=== PATIENT | female | born 1970 | race Two or more races ===

== ENCOUNTER 2019-03-02 13:53 | Emergency (ER) | payer MEDICAID, OTHER ==
[~2019-03-02] VITALS: Ht 154.9 cm; Wt 90.7 kg
[2019-03-02 14:07] VITALS: BP 158/92
== END 2019-03-02 16:35 | disposition home or self-care (01) ==
LOC: ER 14:00 → OR 1 14:24 → ER 16:16
DX: M77.52 Other enthesopathy of left foot and ankle (principal); E78.5 Hyperlipidemia, unspecified; I10 Essential (primary) hypertension; X58.XXXA Exposure to other specified factors, initial encounter; Y93.01 Activity, walking, marching and hiking; Y92.89 Other specified places as the place of occurrence of the external cause; Y99.8 Other external cause status
CPT/HCPCS: 73630

== ENCOUNTER 2019-04-11 03:52 | Emergency (ER) | payer MEDICAID ==
[~2019-04-11] VITALS: Ht 154.9 cm; Wt 90.7 kg
[~2019-04-11 03:52] MED LIST: ACET-1156 PO; ACET30TA15 PO; AMLO5TAB13 PO; APIX5TAB OR; ATO40T PO; CHOL20007 PO; CYCL0.05 EACHEYE; CYCL1TAB18 PO; DICL1GEL26 TD; ESCI10TA PO; FEXO-38 PO; HYDR1TAB97 PO; IBUP800T24 PO; LEVO112T4 PO; PANT40T PO; PREG75CA PO; PROP60CA34 PO; TRIA0.1P11 TOP
[2019-04-11 07:45] LABS: Basophils # (auto) 0.1 uL; Basophils % (auto) 0.9 % (0.0-2.0); Eosinophils # (auto) 0.2 uL; Eosinophils % (auto) 2.1 % (0.0-7.0); Hematocrit 39.6 % (36.0-46.0); Hemoglobin 13.1 g/dL (12.2-16.2); Lymphocytes % (auto) 27.8 % (10.0-50.0); Mean Corpuscular Hemoglobin 29.6 pg (28.0-32.0); Mean Corpuscular Volume 89.6 fL (80.0-100.0); Monocytes # (auto) 0.5 uL; Monocytes % (auto) 6.8 % (0.0-12.0); Neutrophils # (auto) 4.5 uL; Neutrophils % (auto) 62.4 % (37.0-80.0); Platelet Count (auto) 402 10^3/uL (140-450); Red Blood Cells 4.42 10^6/uL (4.0-5.20); Red Cell Distribution Width 13.9 % (11.8-14.3); White Blood Cell 7.2 10^3/uL (4.4-10.8)
[2019-04-11 08:02] LABS: Alanine Aminotransferase 22 U/L (13-56); Albumin 3.4 g/dL (3.4-5.0); Anion Gap 11 (5-15); Aspartate Aminotransferase 12 U/L (15-37); BUN/Creatinine Ratio 15.5; Blood Urea Nitrogen 13 mg/dL (7-18); Calcium 8.9 mg/dL (8.5-10.1); Carbon Dioxide 19 mmol/L (21-32); Chloride 106 mmol/L (98-107); GFR African American 93 mL/min; GFR Non-African American 77 mL/min; Glucose 110 mg/dL (74-106); Magnesium 2.6 mg/dL (1.6-2.6); Potassium 4.1 mmol/L (3.5-5.1); Sodium 136 mmol/L (136-145)
[2019-04-11 08:07] LABS: Alkaline Phosphatase 98 U/L (45-117); Bilirubin, Total 0.3 mg/dL (0.2-1.0); Total Protein 8.6 g/dL (6.4-8.2)
[2019-04-11 08:24] LABS: INR < 0.93 (0.9-1.15); Partial Thromboplastin Time 28.5 sec (23.64-32.05)
[2019-04-11] MEDS ORDERED: METOCLOPRAMIDE HCL 5MG/ml INJ 2ml VIAL IV ONE (08:30)
[2019-04-11] MEDS ORDERED: MORPHINE SULFATE 4 MG/ML SYR/VIAL IV ONE (08:30)
[2019-04-11 10:30] VITALS: BP 125/68
== END 2019-04-11 16:38 | disposition home or self-care (01) ==
LOC: ER 03:55
DX: R07.89 Other chest pain (principal); N39.0 Urinary tract infection, site not specified; M75.32 Calcific tendinitis of left shoulder; E78.5 Hyperlipidemia, unspecified; I10 Essential (primary) hypertension; Z86.718 Personal history of other venous thrombosis and embolism; Z86.711 Personal history of pulmonary embolism; Z86.39 Personal history of other endocrine, nutritional and metabolic disease; Z88.0 Allergy status to penicillin; Z79.899 Other long term (current) drug therapy
CPT/HCPCS: 36415; 71045; 73030; 80053; 83735; 84443; 84484; 85025; 85379; 85610; 85730; 93005; 94761; 96374; 96375; 99284; J2270; J2765

== ENCOUNTER 2020-03-25 13:35 | Emergency (ER) | payer MEDICAID ==
[~2020-03-25] VITALS: Ht 154.9 cm; Wt 86.2 kg
[~2020-03-25 13:35] MED LIST changes: -AMLO5TAB13 PO; +AMLO5TAB15 PO; +CYCL10TA6 PO; -CYCL1TAB18 PO
[2020-03-25 17:07] LABS: Urine Bacteria MOD /hpf (None Seen); Urine Blood 1+ /uL (Negative); Urine Mucus FEW (None Seen); Urine Specific Gravity 1.021 (1.001-1.035); Urine WBC 754 /hpf (0 - 5)
[2020-03-25 17:30] VITALS: BP 145/82
== END 2020-03-25 17:33 | disposition home or self-care (01) ==
LOC: ER 13:35
DX: K80.20 Calculus of gallbladder without cholecystitis without obstruction (principal); N39.0 Urinary tract infection, site not specified; E78.5 Hyperlipidemia, unspecified; I10 Essential (primary) hypertension; Z88.0 Allergy status to penicillin
CPT/HCPCS: 74176; 81001

== ENCOUNTER 2020-11-11 14:19 | Emergency (ER) | payer MEDICAID ==
[~2020-11-11] VITALS: Ht 157.5 cm; Wt 81.6 kg
[~2020-11-11 14:19] MED LIST changes: +AMLO-489 PO; -AMLO5TAB15 PO; -IBUP800T24 PO; +IBUP800T27 PO
[2020-11-11 16:06] VITALS: BP 191/107
== END 2020-11-11 19:52 | disposition home or self-care (01) ==
LOC: ER 14:19
DX: M25.512 Pain in left shoulder (principal); I10 Essential (primary) hypertension; E78.5 Hyperlipidemia, unspecified; Z79.899 Other long term (current) drug therapy; Z88.0 Allergy status to penicillin
CPT/HCPCS: 73030; 93971

== ENCOUNTER 2022-01-14 10:32 | Emergency (ER) | payer MEDICAID ==
[~2022-01-14] VITALS: Ht 157.5 cm; Wt 90.7 kg
[~2022-01-14 10:32] MED LIST changes: +CYCL-839 PO; -CYCL10TA6 PO; -FEXO-38 PO; +FEXO-90 PO; -TRIA0.1P11 TOP; +TRIA0.1P17 TOP
[2022-01-14 11:05] LABS: Basophils # (auto) 0 10 ^3/uL (0-0.2); Basophils % (auto) 0.3 % (0.0-2.0); Eosinophils # (auto) 0.1 10 ^3/uL (0-0.8); Eosinophils % (auto) 2.4 % (0.0-7.0); Hematocrit 41.7 % (36.0-46.0); Hemoglobin 14.4 g/dL (12.2-16.2); Lymphocytes # (auto) 2.3 10 ^3/uL (0.4-5.4); Lymphocytes % (auto) 41.6 % (10.0-50.0); Mean Corpuscular Hemoglobin 31.4 pg (28.0-32.0); Mean Corpuscular Hgb Conc. 34.6 g/dL (32.0-36.0); Mean Corpuscular Volume 90.7 fL (80.0-100.0); Monocytes # (auto) 0.6 10 ^3/uL (0-1.3); Monocytes % (auto) 10.9 % (0.0-12.0); Neutrophils # (auto) 2.5 10 ^3/uL (1.6-8.6); Neutrophils % (auto) 44.8 % (37.0-80.0); Nucleated Red Blood Cells % 0.1 %; Red Cell Distribution Width 13.4 % (11.8-14.3); White Blood Cell 5.6 10^3/uL (4.4-10.8)
[2022-01-14 11:18] LABS: Albumin 3.5 g/dL (3.4-5.0); Calcium 9.1 mg/dL (8.5-10.1); Potassium 3.8 mmol/L (3.5-5.1)
[2022-01-14 11:21] LABS: BUN/Creatinine Ratio 10.3; Bilirubin, Total 0.6 mg/dL (0.2-1.0); Total Protein 8.1 g/dL (6.4-8.2)
[2022-01-14 12:39] LABS: Urine Bacteria FEW /hpf (None Seen); Urine Blood Negative /uL (Negative); Urine Specific Gravity 1.002 (1.001-1.035); Urine WBC 1 /hpf (0 - 5)
[2022-01-14] MEDS ORDERED: diazePAM 5 MG TAB PO ONE (16:15)
[2022-01-14 19:47] VITALS: BP 122/76
[2022-01-15] MEDS ORDERED: PRED20TA2 PO (16:06)
[2022-01-15] MEDS ORDERED: CIP03OS RIGHTEYE (16:06)
[2022-01-15] MEDS ORDERED: AMOX-277 PO (16:06)
== END 2022-01-14 21:40 | disposition left against medical advice (07) ==
LOC: ER 10:32
DX: R42 Dizziness and giddiness (principal); M25.511 Pain in right shoulder; E78.5 Hyperlipidemia, unspecified; I10 Essential (primary) hypertension; Z88.0 Allergy status to penicillin; Z53.21 Procedure and treatment not carried out due to patient leaving prior to being seen by health care provider
CPT/HCPCS: 36415; 70450; 71045; 74176; 80053; 81001; 84484; 85025; 93005

== ENCOUNTER 2022-01-15 14:41 | Emergency (ER) | payer MEDICAID ==
[~2022-01-15] VITALS: Ht 157.5 cm; Wt 90.7 kg
[2022-01-15 14:51] VITALS: BP 126/87
[2022-01-15 15:32] LABS: Basophils # (auto) 0.1 10 ^3/uL (0-0.2); Eosinophils # (auto) 0.2 10 ^3/uL (0-0.8); Eosinophils % (auto) 2.8 % (0.0-7.0); Hematocrit 42.5 % (36.0-46.0); Hemoglobin 14.8 g/dL (12.2-16.2); Lymphocytes # (auto) 2.2 10 ^3/uL (0.4-5.4); Lymphocytes % (auto) 31.5 % (10.0-50.0); Mean Corpuscular Hemoglobin 31.2 pg (28.0-32.0); Mean Corpuscular Hgb Conc. 34.9 g/dL (32.0-36.0); Mean Corpuscular Volume 89.4 fL (80.0-100.0); Monocytes # (auto) 0.4 10 ^3/uL (0-1.3); Monocytes % (auto) 5.9 % (0.0-12.0); Neutrophils % (auto) 57.8 % (37.0-80.0); Nucleated Red Blood Cells % 0.1 %; Red Blood Cells 4.75 10^6/uL (4.0-5.20); Red Cell Distribution Width 12.9 % (11.8-14.3); White Blood Cell 6.9 10^3/uL (4.4-10.8)
[2022-01-15 15:39] LABS: Albumin 3.6 g/dL (3.4-5.0); BUN/Creatinine Ratio 11.5; Calcium 9.5 mg/dL (8.5-10.1); Potassium 3.5 mmol/L (3.5-5.1)
[2022-01-15 15:42] LABS: Bilirubin, Total 0.4 mg/dL (0.2-1.0); Total Protein 8.5 g/dL (6.4-8.2)
[2022-01-15] MEDS ORDERED: CIP03OS RIGHTEYE (16:06)
[2022-01-15] MEDS ORDERED: AMOX-277 PO (16:06)
[2022-01-15] MEDS ORDERED: PRED20TA2 PO (16:06)
== END 2022-01-15 16:14 | disposition home or self-care (01) ==
LOC: ER 14:41
DX: R42 Dizziness and giddiness (principal); H65.03 Acute serous otitis media, bilateral; H10.31 Unspecified acute conjunctivitis, right eye; E78.5 Hyperlipidemia, unspecified; I10 Essential (primary) hypertension; F17.210 Nicotine dependence, cigarettes, uncomplicated
CPT/HCPCS: 36415; 80053; 84484; 85025; 93005

== ENCOUNTER 2022-10-27 14:18 | Emergency (ER) | payer OTHER, MEDICAID ==
[~2022-10-27] VITALS: Ht 154.9 cm; Wt 91.4 kg
[~2022-10-27 14:18] MED LIST changes: +AMOX-277 PO; +CIP03OS RIGHTEYE; +PRED20TA2 PO
[2022-10-27 14:51] LABS: Basophils # (auto) 0.1 10 ^3/uL (0-0.2); Basophils % (auto) 1.7 % (0.0-2.0); Eosinophils # (auto) 0.1 10 ^3/uL (0-0.8); Eosinophils % (auto) 1.8 % (0.0-7.0); Hematocrit 41.3 % (36.0-46.0); Hemoglobin 13.8 g/dL (12.2-16.2); Lymphocytes # (auto) 2.2 10 ^3/uL (0.4-5.4); Mean Corpuscular Hemoglobin 30.5 pg (28.0-32.0); Mean Corpuscular Hgb Conc. 33.4 g/dL (32.0-36.0); Mean Corpuscular Volume 91.3 fL (80.0-100.0); Monocytes # (auto) 0.4 10 ^3/uL (0-1.3); Monocytes % (auto) 9.6 % (0.0-12.0); Neutrophils # (auto) 1.9 10 ^3/uL (1.6-8.6); Neutrophils % (auto) 40.9 % (37.0-80.0); Nucleated Red Blood Cells % 0.1 %; Red Blood Cells 4.52 10^6/uL (4.0-5.20); Red Cell Distribution Width 12.9 % (11.8-14.3); White Blood Cell 4.7 10^3/uL (4.4-10.8)
[2022-10-27 15:41] LABS: Alanine Aminotransferase 39 U/L (13-56); Albumin 3.7 g/dL (3.4-5.0); Alkaline Phosphatase 84 U/L (45-117); Anion Gap 7 (5-15); Aspartate Aminotransferase 36 U/L (15-37); BUN/Creatinine Ratio 11.7; Bilirubin, Total 0.4 mg/dL (0.2-1.0); Blood Urea Nitrogen 9 mg/dL (7-18); Calcium 9.5 mg/dL (8.5-10.1); Carbon Dioxide 27 mmol/L (21-32); Chloride 101 mmol/L (98-107); GFR African American 101 mL/min; GFR Non-African American 84 mL/min; Glucose 104 mg/dL (74-106); Potassium 4.2 mmol/L (3.5-5.1); Sodium 135 mmol/L (136-145); Total Protein 7.5 g/dL (6.4-8.2)
[2022-10-27 15:42] LABS: Lipase 146 U/L (73-393)
[2022-10-27] MEDS ORDERED: metroNIDAZOLE 500MG/100ML 100 ML IV ONE (16:30)
[2022-10-27] MEDS ORDERED: SODIUM CHLORIDE 0.9% 1,000 ML IV ONE (16:30)
[2022-10-27] MEDS ORDERED: VANCOMYCIN 1GM/250ML 250 ML IV ONE (16:30)
[2022-10-27 17:28] LABS: Urine Bacteria FEW /hpf (None Seen); Urine Blood Negative /uL (Negative); Urine Specific Gravity 1.007 (1.001-1.035); Urine WBC 2 /hpf (0 - 5)
[2022-10-27] MEDS ORDERED: cloNIDine HCL 0.1 MG TAB PO ONE (19:30)
[2022-10-27] MEDS ORDERED: cefTRIAXone 1GM/50ML D5W 50 ML IV ONE (22:30)
[2022-10-28 00:41] VITALS: BP 138/88
== END 2022-10-28 01:21 | disposition short-term general hospital (02) ==
LOC: ER 14:18
DX: K80.00 Calculus of gallbladder with acute cholecystitis without obstruction (principal); F17.210 Nicotine dependence, cigarettes, uncomplicated; E78.5 Hyperlipidemia, unspecified; I10 Essential (primary) hypertension; Z88.0 Allergy status to penicillin; Z20.822 Contact with and (suspected) exposure to COVID-19
CPT/HCPCS: 36415; 74176; 76705; 80053; 81001; 83690; 84484; 85025; 87426; 96365; 96366; 96367; 99285; J0696; J3370; J3490; J7030

== ENCOUNTER 2023-01-24 15:24 | Emergency (ER) | payer OTHER, MEDICAID ==
[~2023-01-24] VITALS: Ht 154.9 cm; Wt 89.5 kg
[2023-01-24 15:40] VITALS: BP 146/74
== END 2023-01-24 16:38 | disposition left against medical advice (07) ==
LOC: ER 15:24
DX: M79.662 Pain in left lower leg (principal); R22.42 Localized swelling, mass and lump, left lower limb; Z53.21 Procedure and treatment not carried out due to patient leaving prior to being seen by health care provider; Z86.718 Personal history of other venous thrombosis and embolism; Z86.711 Personal history of pulmonary embolism

== ENCOUNTER 2024-05-20 14:23 | Emergency (ER) | payer OTHER, MEDICAID ==
[~2024-05-20] VITALS: Ht 154.9 cm; Wt 92.5 kg
[~2024-05-20 14:23] MED LIST changes: -ACET-1156 PO; +ACET-1881 PO; -AMLO-489 PO; +AMLO1TAB22 PO; -AMOX-277 PO; +AMOX875T4 PO; -ATO40T PO; +ATOR-507 PO; +FEXO-226 PO; -FEXO-90 PO; +IBUP-1456 PO; -IBUP800T27 PO; -TRIA0.1P17 TOP; +TRIA0.1P2 TOP
[2024-05-20 15:41] LABS: Urine Bacteria MANY /hpf (None Seen); Urine Blood Negative /uL (Negative); Urine Clarity Turbid (Clear); Urine Color Yellow (Yellow); Urine Mucus FEW (None Seen); Urine Protein, UAD TRACE (Negative); Urine Specific Gravity 1.017 (1.001-1.035); Urine Urobilinogen Normal (Negative); Urine WBC 9 /hpf (0 - 5)
[2024-05-20 15:45] LABS: Basophils # (auto) 0.1 10 ^3/uL (0-0.2); Basophils % (auto) 0.7 % (0.0-2.0); Eosinophils # (auto) 0 10 ^3/uL (0-0.8); Eosinophils % (auto) 0.5 % (0.0-7.0); Hemoglobin 14.5 g/dL (12.2-16.2); Lymphocytes % (auto) 11.4 % (10.0-50.0); Mean Corpuscular Hemoglobin 31.1 pg (28.0-32.0); Mean Corpuscular Hgb Conc. 33.6 g/dL (32.0-36.0); Mean Corpuscular Volume 92.4 fL (80.0-100.0); Monocytes # (auto) 0.4 10 ^3/uL (0-1.3); Monocytes % (auto) 4.5 % (0.0-12.0); Neutrophils # (auto) 7.5 10 ^3/uL (1.6-8.6); Neutrophils % (auto) 82.9 % (37.0-80.0); Nucleated Red Blood Cells % 0.1 %; Platelet Count (auto) 393 10^3/uL (140-450); Red Blood Cells 4.66 10^6/uL (4.0-5.20); Red Cell Distribution Width 13.9 % (11.8-14.3); White Blood Cell 9.1 10^3/uL (4.4-10.8)
[2024-05-20 16:00] LABS: Alanine Aminotransferase 135 U/L (7-40); Albumin 4.6 g/dL (3.2-4.8); Alkaline Phosphatase 114 U/L (46-116); Anion Gap 9 (5-15); Aspartate Aminotransferase 125 U/L (13-40); Calcium 9.4 mg/dL (8.7-10.4); Carbon Dioxide 24 mmol/L (20-30); Chloride 103 mmol/L (98-107); Glucose 147 mg/dL (74-106); Lipase 42 U/L (12-53); Potassium 4.5 mmol/L (3.5-5.1); Sodium 136 mmol/L (136-145)
[2024-05-20 16:01] LABS: BUN/Creatinine Ratio 6.8 (10.0-20.0); Bilirubin, Total 0.3 mg/dL (0.2-1.0); Blood Urea Nitrogen < 5 mg/dL (9-23); Total Protein 7.9 g/dL (5.7-8.2)
[2024-05-20 16:41] VITALS: BP 129/78; PULSE 100; RESP 16; TEMP 98.9; O2SAT 98
== END 2024-05-20 16:57 | disposition home or self-care (01) ==
LOC: ER 14:23
DX: R07.89 Other chest pain (principal); I10 Essential (primary) hypertension; E78.5 Hyperlipidemia, unspecified; F41.9 Anxiety disorder, unspecified; F32.9 Major depressive disorder, single episode, unspecified; F17.210 Nicotine dependence, cigarettes, uncomplicated; Z98.890 Other specified postprocedural states; Z88.0 Allergy status to penicillin; Z79.899 Other long term (current) drug therapy
CPT/HCPCS: 36415; 71046; 80053; 81001; 83690; 85025; 93005

== ENCOUNTER 2025-01-03 08:35 | Emergency (ER) | payer OTHER, MEDICAID ==
[~2025-01-03] VITALS: Ht 154.9 cm; Wt 91.1 kg
[2025-01-03] MEDS: HYDROcodone-ACET 10/325MG TAB PO ONE (09:03)
--- NOTE | 2025-01-03 09:03 | ED.PDOC ---
Back pain HPI HPI Comments A 54 YEAR OLD FEMALE PRESENTS TO THE ED WITH CHIEF COMPLAINT OF CHRONIC BACK PAIN. PATIENT REPORTS THAT SHE HAS HAD CHRONIC BACK PAIN AND LUPUS FOR YEARS AND IS HAVING AN MRI PERFORMED AT 11AM TODAY FOR IT. PATIENT RELAYS THAT HER BACK PAIN FLARED UP LAST NIGHT AND HAS BEEN CONSTANT SINCE THEN. PATIENT REQUESTS PAIN MEDICATION TO GET HER THROUGH TILL HER APPOINTMENT TODAY FOR HER MRI OF BACK. PT IS UNDER PAIN MANAGEMENT CARE FOR HER CHRONIC LOW BACK PAIN. PATIENT DENIES ANY CHEST PAIN, DIZZINESS, N/V/D, DYSURIA, OR HEMATURIA AND FALL INJURY. PT DECLINED BACK IMAGING EXAM DUE TO MRI STUDY LATER TODAY. NO OTHER SYMPTOMS REPORTED AT THIS TIME OF CARE. Chief Complaint: Back Pain Time Seen by MD: 08:59 Primary Care Provider: RENE Reviewed Notes: Nurses Notes, Medications, Allergies Allergies: Coded Allergies: Penicillins (Verified Allergy, Mild, 03/08/19) Home Meds Active Scripts Ciprofloxacin Hcl (Ophth) (Cipro Opthalmic Soln) [address], 2 DROP RIGHTEYE QID, #5 ML Prov:RAN MALIK 01/15/22 Prednisone (Prednisone) 20 Mg Tab, 60 MG PO DAILY, #15 MG Prov:RAN MALIK 01/15/22 Amoxicillin & Pot Clavulanate (Amoxicillin/Potassium Cla) 875 Mg Tab, 875 MG PO BID, #20 TAB Prov:RAN MALIK 01/15/22 Apixaban Base (ELIQUIS) 5 Mg Tab, 5 MG OR BID for 90 Days Prov:JO ANN CALDWELL MD 03/09/19 Reported Medications Triamcinolone Acetonide (Triamcinolone Acetonide) 0.1 % Pst, 0.025 APPLIC TOP, APPLIC 03/09/19 Cyclosporine (Ophth) (Restasis) 0.05 % Emu, 1 DROP EACHEYE BID, #60 VIAL 3 Refills 03/09/19 Propranolol Hcl (Inderal La) 60 Mg Cap, 1 CAP PO DAILY, #90 CAP 1 Refill 03/09/19 Pantoprazole Sodium Sesquihydr (Pantoprazole Sodium) 40 Mg Tab, 20 MG PO, TAB 03/09/19 Pregabalin (Lyrica) 75 Mg Cap, 1 CAP PO BID, #60 CAP 1 Refill 03/09/19 Levothyroxine Sodium (Levothyroxine Sodium) 112 Mcg Tab, 112 MCG PO QAM for 30 Days, MCG 03/09/19 Ibuprofen (Ibuprofen) 800 Mg Tab, 800 MG PO, MG 03/09/19 Hydrocodone-Acetaminophen (Hydrocodone/Acetaminophen 5-325 mg) 1 Tab Tab, 1 TAB PO, TAB 03/09/19 Fexofenadine Hcl (Fexofenadine Hcl) 60 Mg Tab, 180 MG PO DAILY for 30 Days, MG 03/09/19 Escitalopram Oxalate (Lexapro) 10 Mg Tab, 1 TAB PO DAILY, #90 TAB 3 Refills 03/09/19 Diclofenac Sodium (Topical) (Voltaren) 1 % Gel, 1 % TD, GEL 03/09/19 Cyclobenzaprine Hcl (Cyclobenzaprine Hcl) 10 Mg Tab, 10 MG PO Q8HP for 30 Days, MG 03/09/19 Cholecalciferol (VITAMIN D3) 2,000 Unit Tab, 0.5 TAB PO DAILY, #30 TAB 5 Refills 03/09/19 Atorvastatin Calcium (Lipitor) 40 Mg Tab, 1 TAB PO DAILY, #30 TAB 5 Refills 03/09/19 Amlodipine Besylate (Amlodipine Besylate) 5 Mg Tab, 10 MG PO DAILY for 30 Days, MG 03/09/19 Acetaminophen W/ Codeine (Codeine/Acetaminophen) 1 Tab Tab, 1 TAB PO, TAB 03/09/19 Acetaminophen (Acetaminophen) 325 Mg Tab, 500 MG PO Q6HPRN PRN for MILD PAIN for 30 Days, MG 0 Refills 03/09/19 Information Source: Patient Mode of Arrival: Ambulatory Timing: Hours Duration: Since onset Location of Back pain: (B) Lower back Severity: Moderate Prehospital treatment: None Quality: Aching Onset: Spontaneous History of: Chronic Back Pain Associated signs and symptoms: None Past Medical History PAST MEDICAL HISTORY: Anxiety, Depression, Gallstones, High Lipids, HTN, Thyroid Past Medical History (Other): CHRONIC LOW BACK PAIN AND LUPUS 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 Family History Family History: Reviewed,noncontributory to illness, Family hx of HTN Social History Smoker: Cigarettes Alcohol: Occasionally Drugs: Denies Drug Use Lives In: Home Constitutional: reports: others (ANXIOUS ); denies: chills, diaphoresis, fatigue, fever, malaise, sweats, weakness EENTM: denies: blurred vision, double vision, ear bleeding, ear discharge, ear drainage, ear pain, ear ringing, eye pain, eye redness, hearing loss, mouth pain, mouth swelling, nasal discharge, nose bleeding, nose congestion, nose pain, photophobia, tearing, throat pain, throat swelling, voice changes, others Respiratory: denies: cough, hemoptysis, orthopnea, SOB at rest, shortness of breath, SOB with excertion, stridor, wheezing, others Cardiovascular: denies: chest pain, dizzy spells, diaphoresis, Dyspnea on exertion, edema, irregular heart beat, left arm pain, lightheadedness, palpitations, PND, syncope, others Gastrointestinal: denies: abdomen distended, abdominal pain, blood streaked bowels, constipated, diarrhea, dysphagia, difficulty swallowing, hematemesis, melena, nausea, poor appetite, poor fluid intake, rectal bleeding, rectal pain, vomiting, others Genitourinary: denies: abnormal vagina bleeding, burning, dyspareunia, dysuria, flank pain, frequency, hematuria, incontinence, pain, , vagina discharge, urgency, others Neurological: denies: dizziness, fainting, headache, left sided numbness, left sided weakness, numbness, paresthesia, pre-existing deficit, right sided numbness, right sided weakness, seizure, speech problems, tingling, tremors, we akness, others Musculoskeletal: reports: back pain, muscle pain; denies: gout, joint pain, joint swelling, muscle stiffness, neck pain, others Integumetry: denies: bruises, change in color, change in hair/nails, dryness, laceration, lesions, lumps, rash, wounds, others Allergic/Immunocompromised: denies: Difficulty Healing, Frequent Infections, Hives, Itching, others Hematologic/Lymphatic: denies: anemia, blood clots, easy bleeding, easy bruising, swollen glands, others Endocrine: denies: excessive hunger, excessive sweating, excessive thirst, excessive urination, flushing, intolerance to cold, intolerance to heat, unexplained weight gain, unexplained weight loss, others Psychiatric: denies: anxiety, bipolar disorder, depression, hopeless, panic disorder, schizophrenia, sleepless, suicidal, others All Other Systems: Reviewed and Negative Physical Exam General Appearance: No Apparent Distress, Normal HEENT: Normal ENT Inspection, PERRL/EOMI Neck: Full Range of Motion, Non-Tender, Normal, Normal Inspection Respiratory: Chest Non-Tender, Lungs Clear, No Accessory Muscle Use, No Respiratory Distress, Normal Breath Sounds Cardiovascular: No Edema, No JVD, No Murmur, No Gallop, Normal Peripheral Pulses, Regular Rate/Rhythm Breast Exam: Deferred Gastrointestinal: No Organomegaly, Non Tender, No Pulsatile Mass, Normal Bowel Sounds, Soft Genitalia: Deferred Pelvic: Deferred Rectal: Deferred Extremities: No calf tenderness, Normal capillary refill, Normal inspection, Normal range of motion, Non-tender, No pedal edema Musculoskeletal : Location: Bilateral Extremity Location: Back Apperance: Tenderness: Moderate (MUSCLE SPASM OF LOW BACK, NO BONY TENDERNESS, SWELLING AND DEFORMITY. ) Neurologic: Alert, hand roller II-XII nml as Tested, No Motor Deficits, Normal Affect, Normal Mood, No Sensory Deficits Cerebellar Function: Normal Reflexes: Normal Skin: Dry, Normal Color, Warm Peripheral Pulses: 2+ carotid (R), 2+ carotid (L) Lymphatic: No Adenopathy Was a procedure done? Was a procedure done?: No Back Pain Differential Dx Differential Diagnosis: Musculoskeletal Pain, Strain, Urolithiasis X-Ray, Labs, Meds, VS Vital Signs Date Time Temp Pulse Resp B/P (MAP) Pulse Ox O2 Delivery O2 Flow Rate FiO2 01/03/25 08:47 97.8 116 20 147/96 (113) 99 97.8 Lab Test 01/03/25 08:45 Range/Units Urine Color Light-yellow Yellow Urine Clarity Clear Clear Urine pH 7.0 5.0-9.0 Urine Specific Omega 1.006 1.001-1.035 Urine Protein Negative Negative Urine Ketones Negative Negative Urine Blood Negative Negative /uL Urine Nitrite Negative Negative Urine Bilirubin Negative Negative Urine Urobilinogen Normal Negative mg/dL Urine Leukocyte Esterase Negative Negative /uL Urine RBC None seen 0 - 4 /hpf Urine Microscopic WBC 1 0-5 /HPF Urine Squamous Epithelial Cells Few <5 /hpf Urine Bacteria Few H None Seen /hpf Urine Glucose Normal Normal mg/dL Current Medications Medications (Trade) Dose Ordered Sig/Low Route Start Time Stop Time Status Last Admin Acetaminophen/ Hydrocodone Bitart ([place] 10/325MG Tab) 1 tab ONCE ONCE PO 01/03/25 09:00 01/03/25 09:01 DC 01/03/25 09:03 X-Ray, Labs, Meds, VS Comment EXTERNAL MEDICAL RECORDS REVIEWED: [NONE] INDEPENDENT HISTORIANS: [NONE] SOCIAL DETERMINANTS OF HEALTH: [NONE] LABS ORDERED: UA REVIEWED AND INTERPRETED RESULTS: NEGATIVE IMAGING ORDERED: NONE TREATMENTS ORDERED: [place]CO 10/325MG PO AND TORADOL 60MG IM PROCEDURES PERFORMED: NONE CRITICAL CARE TIME: NONE I HAVE DISCUSSED THE PATIENT WITH THE ATTENDING PHYSICIAN [ALFONSO] AND HE AGREES WITH THE PATIENT'S PLAN OF CARE AND DISPOSITION. BASED ON HISTORY OF PRESENT ILLNESS, AND PHYSICAL EXAM, PATIENT WILL BE DISCHARGED HOME. DISCUSSED PLAN FOR DISCHARGE HOME. SHARED DECISION MAKING: DISCUSSED WITH PATIENT THAT THEIR WORKUP WAS NORMAL. PATIENT INSTRUCTED TO FOLLOW UP WITH PRIMARY CARE PROVIDER IN 1-2 DAYS FOR RE- EVALUATION OF SYMPTOMS. PATIENT VERBALIZES UNDERSTANDING TO RETURN TO ED FOR NEW OR WORSENING SYMPTOMS OR IF FOLLOW UP WITH PCP CANNOT BE OBTAINED. PATIENT FEELS COMFORTABLE GOING HOME AT THIS TIME. ALL QUESTIONS ADDRESSED AT TIME OF DISCHARGE. Time of 1ST Reevaluation: 10:00 Reevaluation 1ST: Improved Patient Education/Counseling: Diagnosis, Treatment, Need For Follow Up Family Education/Counseling: Diagnosis, Treatment, Need For Follow Up Medical Screening: No EMC Exist At This Time Departure 1 Departure Time of Disposition: 10:00 Impression: Primary Impression: Acute exacerbation of chronic low back pain Additional Impression: Encounter for pain management Disposition: 01 HOME / SELF CARE / HOMELESS Condition: Stable Additional Instructions: FOLLOW-UP WITH PCP IN 1 TO 2 DAYS. TAKE MEDICATIONS PRESCRIBED. RETURN TO ED FOR ANY NEW OR WORSENING SYMPTOMS. Discharged With: Self Critical Care Note Critical Care Time?: No Stability Stability form required: No Heart Score Heart Score: Heart Score Response (Comments) Value History N/A 0 EKG N/A 0 Age N/A 0 Risk Factors N/A 0 Troponin N/A 0 Total 0 I personally scribed for RAN MALIK ([email or web address]) on 01/03/25 at 09:02. Electronically submitted by Kendrick Givens ([email or web address]). RAN MALIK Jan 03, 2025 09:02
[2025-01-03 09:35] LABS: Urine Bacteria FEW /hpf (None Seen); Urine Blood Negative /uL (Negative); Urine Clarity Clear (Clear); Urine Color Light-Yellow (Yellow); Urine Protein, UAD Negative (Negative); Urine Specific Gravity 1.006 (1.001-1.035); Urine Squamous Epithelial Cell FEW /hpf (<5); Urine Urobilinogen Normal (Negative); Urine WBC 1 /HPF (0-5)
[2025-01-03] MEDS: KETOROLAC TROMETH 60MG/2ML VIAL IM ONE (09:45)
[2025-01-03 09:53] VITALS: BP 109/59; PULSE 71; RESP 17; TEMP 98.7; O2SAT 98
== END 2025-01-03 10:01 | disposition home or self-care (01) ==
LOC: ER 08:35
DX: M54.50 Low back pain, unspecified (principal); G89.29 Other chronic pain; F41.9 Anxiety disorder, unspecified; F32.A Depression, unspecified; F17.210 Nicotine dependence, cigarettes, uncomplicated; E78.5 Hyperlipidemia, unspecified; I10 Essential (primary) hypertension; Z01.89 Encounter for other specified special examinations; Z79.899 Other long term (current) drug therapy; Z88.0 Allergy status to penicillin; Z79.890 Hormone replacement therapy; Z79.52 Long term (current) use of systemic steroids; Z79.01 Long term (current) use of anticoagulants
CPT/HCPCS: 81001; 82947; 96372; 99283; J1885

== ENCOUNTER 2025-09-17 17:19 | Inpatient (IN) | payer MEDICARE, MEDICAID ==
[~2025-09-17] VITALS: Ht 154.9 cm; Wt 89.0 kg
--- NOTE | 2025-09-17 18:17 | ED.PDOC ---
Musculoskeletal HPI Comments HPI: 55 year old female presents to the ED with a chief complaint of LT leg pain onset 3 months. Patient states she has been experiencing LT leg pain for the past 3 months, swelling worsens with exertion, has history of DVT on LT leg. She went for ultrasound today at 16:00, was recommended to come to ED due to DVT visualized. She is currently on Eliquis for previous DVT, PE. Denies fall, injury, trauma, shortness of breath, dizziness, nausea, vomiting, chest pain. No other symptoms or modifying factors present at this time. Initial Vitals BP: 149/86 HR: 99 RR: 16 O2: 97% Temp: 98.2 F Past Medical History: DM, HTN, HLD, PE, DVT, Lupus, thyroid disease Past Surgical History: , cholecystectomy Social History: Denies smoking. Denies ETOH. Denies drug use. Medications: Prednisone, Ciprofloxacin, Eliquis Allergies:Penicillins HPI: Poor Historian. nicole malik: LLE DVT, ON ELIQUIS. [place] INTACT. NO SOB. REVIEW OF SYSTEMS: CONSTITUTIONAL: Denies acute: fever, diaphoresis, chills, generalized weakness. HEAD: Denies acute: headache, photophobia Eyes: Denies acute: Double vision, vision loss, eye pain, eye discharge. EARS: Denies acute: tinnitus, hearing loss, ear discharge, ear pain, THROAT: Denies acute: sore throat, swelling, difficulty swallowing , pain with swallowing, change in voice. NECK: Denies acute: neck pain, neck swelling, stiff neck. HEART: Denies acute : chest pain, palpitations, LUNGS: Denies acute: SOB, wheezing, cough, hemoptysis ABDOMEN: Denies acute: abdominal pain, Nausea, Vomiting, diarrhea, melena , hematemesis, hematochezia SKIN: Denies acute: rash, redness, lesions, itchiness. EXTREMITIES: Denies acute: calf pain, numbness, tingling, weakness, Denies acute: Low back pain. Neuro: Denies acute: focal neurological deficit, motor or sensory focal neurological deficit, tremors, seizure like activity, confusion, dizziness, change in mental status, loss of bowel or bladder function, cauda equina like symptoms. : Denies acute: dysuria, hematuria, flank pain, increase in urinary frequency. PSYCH: Denies acute: hallucination, suicidal ideation, homicidal ideation. FEMALE: Denies acute: abnormal vaginal bleeding, foul odor, unusual discharge. PHYSICAL EXAM: General: -----mild---acute distress, awake and alert. Head: normocephalic, atraumatic. No raccoon's eyes, no nelson sign. Neck: supple, trachea is midline, no swelling. Throat: Normal phonation. Eyes:, no erythema, no purulent discharge, no proptosis, no icterus. Heart: regular rate, regular rhythm, no significant murmur appreciated. Lungs: no apparent respiratory distress, Able to speak in full sentences. No wheezing, no rhonchi, no crackles. No stridors Clear to auscultation bilaterally. Abdomen: non tender to palpation, non distended, soft, no guarding, no rebound, + bowel sounds. Neuro: Awake, Alert, oriented to name, self, situation, follows commands GCS=15. Speech is normal. Skin: no petechia, no purpura, no cyanosis, non-pale, not jaundice. EVALUATION OF THE EXTREMITY OF COMPLAINT LEFT LOWER EXTREMITY: -no - Pitting edema no deformity, NOTED GENERALIZED SWELLING AND CALF TENDERNESS TO PALPATION. PATIENT IS NEUROVASCULARLY INTACT IN THE AFFECTED EXTREMITY. Makes eye contact. moves all four extremities. Face: no apparent facial droop. Ambulating in the ED independently. ED COURSE: DISCLAIMER: This medical document was created using an electronic medical record system with voice recognition software and computerized dictation system. Although this document has been carefully reviewed, there might still be some phonetic and typographical errors. Occasional wrong-word or "sound-alike" substitutions may have occurred due to the inherent limitations of voice recognition software. These areas are purely typographical due to imperfections of the software programs and do not reflect any compromise in the patient's medical care. Please read the chart carefully and recognize, using context, where these substitutions have occurred. Chief Complaint: Abnormal LAB's Time Seen by MD: 18:05 Primary Care Provider: RENE Reviewed Notes: Medications, Allergies Allergies: Coded Allergies: Penicillins (Verified Allergy, Mild, 03/08/19) Home Meds Active Scripts Ciprofloxacin Hcl (Ophth) (Cipro Opthalmic Soln) [address], 2 DROP RIGHTEYE QID, #5 ML Prov:ARN MALIK 01/15/22 Prednisone (Prednisone) 20 Mg Tab, 60 MG PO DAILY, #15 MG Prov:RAN MALIK 01/15/22 Amoxicillin & Pot Clavulanate (Amoxicillin/Potassium Cla) 875 Mg Tab, 875 MG PO BID, #20 TAB Prov:RAN MALIK 01/15/22 Apixaban Base (ELIQUIS) 5 Mg Tab, 5 MG OR BID for 90 Days Prov:JO ANN CALDWELL MD 03/09/19 Reported Medications Triamcinolone Acetonide (Triamcinolone Acetonide) 0.1 % Pst, 0.025 APPLIC TOP, APPLIC 03/09/19 Cyclosporine (Ophth) (Restasis) 0.05 % Emu, 1 DROP EACHEYE BID, #60 VIAL 3 Refills 03/09/19 Propranolol Hcl (Inderal La) 60 Mg Cap, 1 CAP PO DAILY, #90 CAP 1 Refill 03/09/19 Pantoprazole Sodium Sesquihydr (Pantoprazole Sodium) 40 Mg Tab, 20 MG PO, TAB 03/09/19 Pregabalin (Lyrica) 75 Mg Cap, 1 CAP PO BID, #60 CAP 1 Refill 03/09/19 Levothyroxine Sodium (Levothyroxine Sodium) 112 Mcg Tab, 112 MCG PO QAM for 30 Days, MCG 03/09/19 Ibuprofen (Ibuprofen) 800 Mg Tab, 800 MG PO, MG 03/09/19 Hydrocodone-Acetaminophen (Hydrocodone/Acetaminophen 5-325 mg) 1 Tab Tab, 1 TAB PO, TAB 03/09/19 Fexofenadine Hcl (Fexofenadine Hcl) 60 Mg Tab, 180 MG PO DAILY for 30 Days, MG 03/09/19 Escitalopram Oxalate (Lexapro) 10 Mg Tab, 1 TAB PO DAILY, #90 TAB 3 Refills 03/09/19 Diclofenac Sodium (Topical) (Voltaren) 1 % Gel, 1 % TD, GEL 03/09/19 Cyclobenzaprine Hcl (Cyclobenzaprine Hcl) 10 Mg Tab, 10 MG PO Q8HP for 30 Days, MG 03/09/19 Cholecalciferol (VITAMIN D3) 2,000 Unit Tab, 0.5 TAB PO DAILY, #30 TAB 5 Refills 03/09/19 Atorvastatin Calcium (Lipitor) 40 Mg Tab, 1 TAB PO DAILY, #30 TAB 5 Refills 03/09/19 Amlodipine Besylate (Amlodipine Besylate) 5 Mg Tab, 10 MG PO DAILY for 30 Days, MG 03/09/19 Acetaminophen W/ Codeine (Codeine/Acetaminophen) 1 Tab Tab, 1 TAB PO, TAB 03/09/19 Acetaminophen (Acetaminophen) 325 Mg Tab, 500 MG PO Q6HPRN PRN for MILD PAIN for 30 Days, MG 0 Refills 03/09/19 Information Source: Patient Mode of Arrival: Ambulatory Location: Left Extremity Location: Leg Timing: Months Prehospital treatment: None Past Medical History PAST MEDICAL HISTORY: Anxiety, Depression, DM, Gallstones, High Lipids, HTN, PE, Thyroid Past Medical History (Other): lupus, DVT 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 Was a procedure done?: No X-Ray, Labs, Meds, VS Vital Signs Date Time Temp Pulse Resp B/P (MAP) Pulse Ox O2 Delivery O2 Flow Rate FiO2 09/17/25 17:21 98.2 99 16 149/86 97 98.2 Time of 1ST Reevaluation: 18:35 Reevaluation 1ST: Unchanged Patient Education/Counseling: Diagnosis, Treatment Family Education/Counseling: No Family Present Departure 1 Departure Time of Disposition: 18:21 Impression: Primary Impression: DVT (deep venous thrombosis) Disposition: ADMITTED INPATIENT Admit to: Tele Condition: Guarded Discharged With: Self Critical Care Note Critical Care Time?: No I personally scribed for CATRINA MANZO DO ([email or web address]) on 09/17/25 at 18:17. Electronically submitted by Yesika Garsia ([email or web address]). CATRINA MANZO DO Sep 17, 2025 18:17
[2025-09-17 18:30] LABS: Hematocrit 46.0 % (36.0-46.0); Hemoglobin 15.5 g/dL (12.2-16.2); Mean Corpuscular Hemoglobin 30.8 pg (28.0-32.0); Mean Corpuscular Volume 91.2 fL (80.0-100.0); Nucleated Red Blood Cells % 0.1 %
[2025-09-17] MEDS: ENOXAPARIN SOD 100 MG/1 ML SYRINGE SC ONE (18:45)
[2025-09-17 18:47] LABS: INR 1.06 (0.9-1.15); Partial Thromboplastin Time 33.3 SEC (24.5-34.5); Prothrombin Time 11.2 sec (9.3-11.8)
[2025-09-17 21:04] LABS: Alanine Aminotransferase 34 U/L (7-40); Albumin 4.4 g/dL (3.2-4.8); Alkaline Phosphatase 99 U/L (46-116); Anion Gap 18 (5-15); BUN/Creatinine Ratio 6.0 (10.0-20.0); Bilirubin, Total 0.6 mg/dL (0.2-1.0); Calcium 10.1 mg/dL (8.7-10.4)
[2025-09-17 21:35] LABS: Blood Urea Nitrogen 5 mg/dL (9-23); Carbon Dioxide 19 mmol/L (20-31); Chloride 101 mmol/L (98-107); Glucose 204 mg/dL (74-106); Potassium 3.4 mmol/L (3.5-5.1); Sodium 138 mmol/L (136-145); Total Protein 8.4 g/dL (5.7-8.2)
[2025-09-17] MEDS ORDERED: ONDANSETRON HCL 4 MG/2 ML VIAL IV PRN (22:30)
--- NOTE | 2025-09-17 23:10 | DVH ---
CHEST RADIOGRAPH INDICATION: chest pain TECHNIQUE: Single frontal view of the chest was obtained COMPARISON: XY CHEST PORTABLE on DOS: 01/27/23, CHEST PORTABLE on DOS: 01/14/22, CXRP on DOS: 01/14/22 FINDINGS: Lines and Tubes: None Lungs: Clear Pleura: No effusion. No pneumothorax. Cardiomediastinal contours: Unremarkable Bones: Unremarkable IMPRESSION: 1. No acute disease.
--- NOTE | 2025-09-17 23:49 | DVH ---
Bilateral lower extremity venous duplex CLINICAL HISTORY: dvt COMPARISON: US BILAT LOWER DVT on DOS: 01/27/23 TECHNIQUE: Duplex Doppler evaluation of the deep venous systems of both lower extremities from the common femoral veins to the popliteal veins including color Doppler and spectral/pulsed waveform analysis was performed. FINDINGS: RIGHT SIDE: The common femoral vein demonstrates appropriate compressibility and waveform variability. There is compressibility/patency of the great saphenous vein at the proximal thigh. The femoral vein demonstrates appropriate compressibility and waveform variability. The deep femoral vein demonstrates appropriate compressibility and waveform variability. The popliteal vein demonstrates appropriate compressibility and waveform variability. There is normal compressibility at the tibioperoneal trunk. LEFT SIDE: The common femoral vein demonstrates appropriate compressibility and waveform variability. There is compressibility/patency of the great saphenous vein at the proximal thigh. The femoral vein demonstrates appropriate compressibility and waveform variability. The deep femoral vein demonstrates appropriate compressibility and waveform variability. The popliteal vein demonstrates appropriate compressibility and waveform variability. There is normal compressibility at the tibioperoneal trunk. IMPRESSION: 1. No right or left femoropopliteal venous thrombosis.
[2025-09-17 23:55] VITALS: BP 136/86; PULSE 82; RESP 18; TEMP 97.5; O2SAT 97
[2025-09-18] MEDS: ACETAMINOPHEN 325 MG TAB PO SCH (00:49)
[2025-09-18 01:26] LABS: Urine Protein, UAD Negative (Negative)
[2025-09-18 01:47] LABS: Amphetamine Screen, Urine Neg (NEGATIVE); Barbiturate Scree,Urine Neg (NEGATIVE); Benzodiazephine Screen, Urine Neg (NEGATIVE); Cannabinoid Screen, Urine Neg (NEGATIVE); Cocaine Screen, Urine Neg (NEGATIVE); Opiate Scree,Urine Neg (NEGATIVE); Phencyclidine Screen, Urine Neg (NEGATIVE)
--- NOTE | 2025-09-18 03:22 | DVHHPRES ---
History of Present Illness Resident Creating Document: TORITO MENARD RESIDENT History of Present Illness Patient is a 55-year-old female with past medical history of lupus, DVT, PE, hyperlipidemia, hypertension, type 2 diabetes mellitus, hypothyroidism who came to the ED with chief complaints of left leg pain and swelling since 3 months she describes the pain as 10/10 in intensity, nonradiating, constant, and swelling worsens with exertion. Patient had a ultrasound done at [facility], [place] advanced imaging which showed extensive DVT in the left leg , and was recommended to go to ED. patient denies any injury, trauma, shortness of breath, dizziness, nausea, vomiting, chest pain, palpitations, fever, chills, abdominal pain. 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 Patient states at 1st she was taking 5 mg in morning and 5 mg at night of Eliquis but then last year she had bleeding in her gums and decrease the dose of 5 mg to 2.5 mg at night. Previous hospitalization: patient was hospitalized with previous DVT,PE PMHx:lupus, DVT, PE, hyperlipidemia, hypertension, type 2 diabetes mellitus, hypothyroidism PSHx: cholecystectomy , , right dislocated knee Family history: reviewed, noncontributory Social history: denies smoking, 2 drinks on the weekends, denies drug use, jodie es with a roommate Home medication: denies prednisone use, Eliquis 5 mg in the morning and 2.5 mg at night. Amlodipine, levothyroxine, quetiapine Allergic history: penicillin PCP: Dr. Rodriguez patient seen at bedside. Patient still complains of leg swelling which increases with ambulation and 9/10 pain, nausea, Review of Systems Constitutional: No: Fever, Chills, Sweats, Weakness, Malaise, Other Eyes: No: Pain, Vision change, Conjunctivae inflammation, Eyelid inflammation, Other, Redness ENT: No: Ear pain, Ear discharge, Nose pain, Nose discharge, Nose congestion, Mouth pain, Mouth swelling, Throat pain, Throat swelling, Other Respiratory: No: Cough, Dry, Shortness of breath, SOB with excertion, Wheezing, Hemoptysis, Pleuritic Pain, Sputum, Wheezing, Other Cardiovascular: No: Chest Pain, Palpitations, Orthopnea, Paroxysmal Noc. Dyspnea, Edema, Lt Headedness, Other Gastrointestinal: Nausea; No: Vomiting, Abdominal Pain, Diarrhea, Constipation, Melena, Hematochezia, Other Genitourinary: No Dysuria, No Frequency, No Incontinence, No Hematuria, No Retention, No Other Musculoskeletal: leg pain, foot pain; No: other, neck pain, shoulder pain, arm pain, back pain, hand pain Skin: No: Rash, Lesions, Jaundice, Bruising, Other Neurological: No: Weakness, Numbness, Incoordination, Change in speech, Confusion, Seizures, Other Allergies: Coded Allergies: Penicillins (Verified Allergy, Mild, 03/08/19) Medications Current Medications Medications Dose Ordered Sig/Low Route Start Time Stop Time Status Last Admin Dose Admin Ondansetron HCl 4 mg Q4HP PRN IV 09/17/25 22:30 Acetaminophen 650 mg Q6HR PO 09/18/25 00:00 09/18/25 00:49 650 MG Enoxaparin Sodium 90 mg Q12HR SC 09/18/25 10:00 Amlodipine Besylate 10 mg DAILY PO 09/18/25 10:00 Levothyroxine Sodium 112 mcg QAM PO 09/18/25 07:00 Pregabalin 75 mg BID PO 09/18/25 10:00 Atorvastatin Calcium 40 mg HS PO 09/18/25 22:00 Exam Vital Signs Vital Signs Date Time Temp Pulse Resp B/P (MAP) Pulse Ox O2 Delivery O2 Flow Rate FiO2 09/17/25 23:55 97.5 82 18 136/86 (103) 97 97.5 09/17/25 23:55 Room Air* 0 21 Exam General: Patient alert and oriented in person, place and time. Patient following commands. In moderate distress HEENT: Normocephalic, atraumatic, moist mucous membranes Respiratory/pulmonary: Clear lungs bilaterally, vesicular murmurs present in almost all lung knight, no associated crackles or wheezes. Cardiovascular: Normal heart sounds S1 and S2 with no associated murmurs Abdomen: Abdomen nondistended, there is no pain to palpation in any of the abdominal quadrants, no palpable masses. Extremities: Bilateral nonpitting edema more on left side, tenderness of left leg Peripheral Pulses: 3+ Radial (R). 3+ Radial (L). 3+ Dorsalis pedis (R). 3+ Dorsalis pedis(L) Skin: No rashes or pruritus, there is no sacral edema present at this time. Neurological: Intact cranial nerves with no focal neurologic deficits Labs/Xrays Labs Test 09/17/25 22:00 09/17/25 19:49 09/17/25 19:08 09/17/25 18:11 Range/Units Urine Color Colorless Yellow Urine Clarity Clear Clear Urine pH 6.5 5.0-9.0 Urine Specific [place] 1.002 1.001-1.035 Urine Protein Negative Negative Urine Ketones Negative Negative Urine Blood Negative Negative /uL Urine Nitrite Negative Negative Urine Bilirubin Negative Negative Urine Urobilinogen Normal Negative mg/dL Urine Leukocyte Esterase Negative Negative /uL Urine RBC None seen 0 - 4 /hpf Urine Microscopic WBC 5 0-5 /HPF Urine Squamous Epithelial Cells Few <5 /hpf Urine Bacteria Many H None Seen /hpf Urine Glucose Normal Normal mg/dL Urine Opiates Screen Neg NEGATIVE Urine Fentanyl Screen Neg NEGATIVE Urine Barbiturates Screen Neg NEGATIVE Urine Phencyclidine Screen Neg NEGATIVE Urine Amphetamines Screen Neg NEGATIVE Urine Benzodiazepines Screen Neg NEGATIVE Urine Cocaine Screen Neg NEGATIVE Urine Cannabinoids Screen Neg NEGATIVE POC Glucose 87 70-106 mg/dl Sodium Level 138 136-145 mmol/L Potassium Level 3.4 L 3.5-5.1 mmol/L Chloride Level 101 98-107 mmol/L Carbon Dioxide Level 19 L 20-31 mmol/L Anion Gap 18 H 5-15 Blood Urea Nitrogen 5 L 9-23 mg/dL Creatinine 0.84 0.550-1.02 mg/dL Glomerular Filtration Rate Calc 82 >90 mL/min BUN/Creatinine Ratio 6.0 L 10.0-20.0 Serum Glucose 204 H 74-106 mg/dL Calcium Level 10.1 8.7-10.4 mg/dL Magnesium Level 2.2 1.6-2.6 mg/dL Total Bilirubin 0.6 0.2-1.0 mg/dL Aspartate Amino Transferase (AST) 34 13-40 U/L Alanine Aminotransferase (ALT) 34 7-40 U/L Alkaline Phosphatase 99 46-116 U/L Troponin I High Sensitivity < 3 L </=34 ng/L B-Type Natriuretic Peptide 35.09 0-100 pg/mL Total Protein 8.4 H 5.7-8.2 g/dL Albumin 4.4 3.2-4.8 g/dL Thyroid Stimulating Hormone (TSH) 0.55 0.55-4.78 uIU/mL White Blood Count 4.6 4.4-10.8 10^3/uL Red Blood Count 5.05 4.0-5.20 10^6/uL Hemoglobin 15.5 12.2-16.2 g/dL Hematocrit 46.0 36.0-46.0 % Mean Corpuscular Volume 91.2 80.0-100.0 fL Mean Corpuscular Hemoglobin 30.8 28.0-32.0 pg Mean Corpuscular Hemoglobin Concent 33.7 32.0-36.0 g/dL Red Cell Distribution Width 13.0 11.8-14.3 % Platelet Count 315 140-450 10^3/uL Mean Platelet Volume 7.3 6.9-10.8 fL Neutrophils (%) (Auto) 53.4 37.0-80.0 % Lymphocytes (%) (Auto) 34.8 10.0-50.0 % Monocytes (%) (Auto) 8.0 0.0-12.0 % Eosinophils (%) (Auto) 2.1 0.0-7.0 % Basophils (%) (Auto) 1.7 0.0-2.0 % Neutrophils # (Auto) 2.4 1.6-8.6 10 ^3/uL Lymphocytes # (Auto) 1.6 0.4-5.4 10 ^3/uL Monocytes # (Auto) 0.4 0-1.3 10 ^3/uL Eosinophils # (Auto) 0.1 0-0.8 10 ^3/uL Basophils # (Auto) 0.1 0-0.2 10 ^3/uL Nucleated Red Blood Cells 0.1 % Prothrombin Time 11.2 9.3-11.8 sec Prothrombin Time INR 1.06 0.9-1.15 Activated Partial Thromboplast Time 33.3 24.5-34.5 SEC SEPSIS Sepsis Screen Date sepsis recognized/suspect: Sep 17, 2025 Time Sepsis recognized/suspect: 1724 Recent Procedure: No On Antibiotic Therapy: No Respiratory Rate >20: No Heart Rate >90: Yes Temp<36 C (96.8 F) or >38.3 C: No SBP <90 or MAP <65 mmHG: No New Acute Mental Status Change: No Is the patient on CPAP, BIPAP,: No Physician Orders Admit (09/17/25 22:22) Code Status (09/17/25 22:22) Ondansetron Hcl (Zofran) (09/17/25 22:30) Complete Blood Count (09/18/25 04:00) Comprehensive Metabolic Panel (09/18/25 04:00) Cardiac Diet-2gna,Lofat,Lochol (09/18/25 Breakfast) Echo 2d Mode Cardiac Dop (09/17/25 22:22) Condition: Serious (09/17/25 22:22) Acetaminophen Tablet (Tylenol Tablet) (09/18/25 00:00) Bedrest With Bathroom Privileg (09/17/25 22:22) Stat Ekg For Chest Pain (09/17/25 22:22) Notify Md Of Changes From Base (09/17/25 22:22) Metal Loader For 24 Hours (09/17/25 22:22) Emergency Dysrhythmia Protocol (09/17/25 22:22) Rhythm Strips Once Every Shift (09/17/25 22:22) Chest Xray 1 View (09/17/25 22:22) Bilat Lower Dvt (09/17/25 22:22) Lupus Anticoagulant Comp (09/17/25 22:22) Electrocardigram (09/17/25 23:22) Enoxaparin Sodium (Lovenox) (09/18/25 10:00) Amlodipine Tablet (Norvasc Tablet) (09/18/25 10:00) Levothyroxine Tablet (Synthroid Tablet) (09/18/25 07:00) Pregabalin Capsule (Lyrica Capsule) (09/18/25 10:00) Atorvastatin (Lipitor) (09/18/25 22:00) Vital Signs Date Time Temp Pulse Resp B/P (MAP) Pulse Ox O2 Delivery O2 Flow Rate FiO2 09/17/25 23:55 97.5 82 18 136/86 (103) 97 97.5 09/17/25 23:55 82 18 97 Room Air* 0 21 Laboratory Tests Test 09/17/25 18:11 White Blood Count 4.6 10^3/uL (4.4-10.8) Medications Medications Dose Ordered Sig/Low Route Start Time Stop Time Status Last Admin Dose Admin Acetaminophen 650 mg Q6HR PO 09/18/25 00:00 09/18/25 00:49 650 MG Enoxaparin Sodium 90 mg ONCE ONCE SC 09/17/25 18:15 09/17/25 18:16 DC 09/17/25 18:45 90 MG Assessment/Plan Assessment/Plan DVT History of DVT History of PE - physical exam finding left leg swelling ankle to the knee with 2+ edema - radiology report showed nonocclusive DVT in left lower extremity superficial femoral and popliteal vein - check CD with radiology Lupus - patient not taking prednisone -lupus antibodies Hypertension Continue home meds Diabetes mellitus type 2 HbA1c Hyperlipidemia Continue home meds Hypothyroidism Levothyroxine Obesity BMI 37.1 -patient counseled on diet, exercise, lifestyle modifications for 18 minutes Cardiac diet PPI prophylaxis: Protonix DVT prophylaxis: Therapeutic Lovenox Goals of care addressed with the patient for more than 27 minutes: Full code status Case discussed with Dr. Griffith , patient and nurse Plan discussed with: Patient My Orders Orders - TORITO MENARD RESIDENT Procedure Category Date Status Time Admit ADMIT 09/17/25 Transmitted 22:22 Code Status CODE 09/17/25 Transmitted 22:22 Ondansetron Hcl PHA 09/17/25 In Process (Zofran) 22:30 Complete Blood Count LAB 09/18/25 Logged 04:00 Comprehensive LAB 09/18/25 Logged Metabolic Panel 04:00 Cardiac DIET 09/18/25 Transmitted Diet-2gna,Lofat,Lochol Breakfast Echo 2d Mode Cardiac US 09/17/25 Logged DOP 22:22 Condition: Serious [facility]AVI 09/17/25 In Process 22:22 Acetaminophen Tablet PHA 09/18/25 In Process (Tylenol Tablet) 00:00 Bedrest With Bathroom XAVI 09/17/25 In Process Privileg 22:22 Stat Ekg For Chest [facility]I 09/17/25 In Process Pain 22:22 Notify Md Of Changes [facility] 09/17/25 In Process From Base 22:22 Metal Loader For XAVI 09/17/25 In Process 24 Hours 22:22 Emergency Dysrhythmia [facility]I 09/17/25 In Process Protocol 22:22 Rhythm Strips Once [facility] 09/17/25 In Process Every Shift 22:22 Chest Xray 1 View XY 09/17/25 Resulted 22:22 Bilat Lower Dvt US 09/17/25 Resulted 22:22 Lupus Anticoagulant LAB 09/17/25 Logged Comp 22:22 Electrocardigram EKG 09/17/25 Logged 23:22 Enoxaparin Sodium PHA 09/18/25 In Process (Lovenox) 10:00 Amlodipine Tablet PHA 09/18/25 In Process (Norvasc Tablet) 10:00 Levothyroxine Tablet PHA 09/18/25 In Process (Synthroid Tablet) 07:00 Pregabalin Capsule PHA 09/18/25 In Process (Lyrica Capsule) 10:00 Atorvastatin (Lipitor) PHA 09/18/25 In Process 22:00 Visit Coding STANDARD RES Billing Provider: KARLY GRIFFITH MD Date of Service if different f: Sep 17, 2025 Common Visit Codes: [id number] INP/OBS CARE (HIGH) Secondary Visit Codes: 66764-[id number] CARE PLAN 30 MINUTES TORITO MENARD RESIDENT Sep 18, 2025 03:22
[2025-09-18 05:00] VITALS: BP 105/63; PULSE 70; RESP 16; TEMP 98.3; O2SAT 97
[2025-09-18] MEDS: PANTOPRAZOLE 40 MG TAB PO SCH (06:03)
[2025-09-18] MEDS: LEVOTHYROXINE SODIUM 112 MCG TAB PO SCH (06:04)
[2025-09-18 06:49] LABS: Hematocrit 43.2 % (36.0-46.0); Hemoglobin 14.8 g/dL (12.2-16.2); Mean Corpuscular Hemoglobin 30.9 pg (28.0-32.0); Mean Corpuscular Volume 90.1 fL (80.0-100.0); Nucleated Red Blood Cells % 0.2 %
[2025-09-18 07:12] LABS: Alanine Aminotransferase 26 U/L (7-40); Albumin 3.9 g/dL (3.2-4.8); Alkaline Phosphatase 82 U/L (46-116); Anion Gap 11 (5-15); Bilirubin, Total 0.9 mg/dL (0.2-1.0); Calcium 9.5 mg/dL (8.7-10.4); Carbon Dioxide 25 mmol/L (20-31); Chloride 101 mmol/L (98-107); Glucose 85 mg/dL (74-106); Potassium 3.7 mmol/L (3.5-5.1); Sodium 137 mmol/L (136-145); Total Protein 7.3 g/dL (5.7-8.2)
[2025-09-18 07:16] LABS: BUN/Creatinine Ratio 7.5 (10.0-20.0); Blood Urea Nitrogen < 5 mg/dL (9-23)
[2025-09-18 09:00] VITALS: BP_SYST 95; BP_SYST 97; BP_DIAS 59; BP_DIAS 62; PULSE 61; RESP 19; TEMP 98.1; O2SAT 98
[2025-09-18] MEDS: PREGABALIN CAPSULE 75 MG CAP PO SCH (10:00)
[2025-09-18] MEDS: ENOXAPARIN SOD 100 MG/1 ML SYRINGE SC SCH (10:10)
[2025-09-18] MEDS: POTASSIUM EFFERVESENT TAB 25 MEQ PO ONE (10:11)
--- NOTE | 2025-09-18 11:40 | DVHPNRES ---
Progress Note Date Seen: Sep 18, 2025 Resident Creating Document: JUAN M KHANNA RESIDENT Has the PT tested + for MRSA If YES, has PT been informed?: No Medical Necessity Reason Pt with a Central, PICC or Fol: No Subjective Review of Systems Jocelynn Schmidt is a 55-year-old female, with past medical history of lupus, DVT, PE, hyperlipidemia, hypertension, type 2 diabetes mellitus and hypothyroidis. The patient came to [facility] ED with chief complaints of left leg pain and swelling since 3 months she describes the pain as 10/10 in intensity, nonradiating, constant, and swelling worsens with exertion. Patient had a ultrasound done at [facility] imaging which showed extensive DVT in the left leg , and was recommended to go to ED. patient denies any injury, trauma, shortness of breath, dizziness, nausea, vomiting, chest pain, palpitations, fever, chills, abdominal pain. 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 Patient states at 1st she was taking 5 mg in morning and 5 mg at night of Eliquis but then last year she had bleeding in her gums and decrease the dose of 5 mg to 2.5 mg at night. Previous hospitalization: patient was hospitalized with previous DVT,PE PMHx:lupus, DVT, PE, hyperlipidemia, hypertension, type 2 diabetes mellitus, hypothyroidism PSHx: cholecystectomy , , right dislocated knee Family history: reviewed, noncontributory Social history: denies smoking, 2 drinks on the weekends, denies drug use, lives with a roommate Home medication: denies prednisone use, Eliquis 5 mg in the morning and 2.5 mg at night. Amlodipine, levothyroxine, quetiapine Allergic history: penicillin PCP: Dr. Rodriguez [facility] course: On 09/18/25, the patient seen and examined at bedside. Patient still complains of leg swelling which increases with ambulation and 9/10. Also, the patient was complaining of LUQ abdominal pain, a CT abdomen was ordered that reported no acute abdominal findings. Lactic acid was ordered, level is wnl: 0.8. Due to DVT the patient was started on heparin drip. We will continue following up the progress of this patient. ROS: Constitutional: No: Fever, Chills, Sweats, Weakness, Malaise, Other Eyes: No: Pain, Vision change, Conjunctivae inflammation, Eyelid inflammation, Other, Redness ENT: No: Ear pain, Ear discharge, Nose pain, Nose discharge, Nose congestion, Mouth pain, Mouth swelling, Throat pain, Throat swelling, Other Respiratory: No: Cough, Dry, Shortness of breath, SOB with excertion, Wheezing, Hemoptysis, Pleuritic Pain, Sputum, Wheezing, Other Cardiovascular: No: Chest Pain, Palpitations, Orthopnea, Paroxysmal Noc. Dyspnea, Edema, Lt Headedness, Other Gastrointestinal: Nausea; No: Vomiting, Abdominal Pain, Diarrhea, Constipation, Melena, Hematochezia, Other Genitourinary: No Dysuria, No Frequency, No Incontinence, No Hematuria, No Retention, No Other Musculoskeletal: leg pain, foot pain; No: other, neck pain, shoulder pain, arm pain, back pain, hand pain Skin: No: Rash, Lesions, Jaundice, Bruising, Other Neurological: No: Weakness, Numbness, Incoordination, Change in speech, Confusion, Seizures, Other Objective vital signs Vital Sign Date Time Temp Pulse Resp B/P (MAP) Pulse Ox O2 Delivery O2 Flow Rate FiO2 09/18/25 10:00 95/59 09/18/25 09:00 98.1 61 19 98 98.1 09/17/25 23:55 Room Air* 0 21 Total Intake and Output 09/17/25 09/17/25 09/18/25 15:00 23:00 07:00 Intake Total 100 ml Balance 100 ml medications Current Medications Medications Dose Ordered Sig/Low Route Start Time Stop Time Status Last Admin Dose Admin Ondansetron HCl 4 mg Q4HP PRN IV 09/17/25 22:30 Acetaminophen 650 mg Q6HR PO 09/18/25 00:00 09/18/25 00:49 650 MG Enoxaparin Sodium 90 mg Q12HR SC 09/18/25 10:00 09/18/25 10:10 90 MG Amlodipine Besylate 10 mg DAILY PO 09/18/25 10:00 Levothyroxine Sodium 112 mcg QAM PO 09/18/25 07:00 09/18/25 06:04 112 MCG Pregabalin 75 mg BID PO 09/18/25 10:00 Atorvastatin Calcium 40 mg HS PO 09/18/25 22:00 Pantoprazole Sodium 40 mg DAILY@0600 PO 09/18/25 06:00 09/18/25 06:03 40 MG Examination General Appearance: Alert, Oriented X3, Cooperative, No acute distress HEENT: Atraumatic, PERRLA, EOMI, Mucous membr. moist/pink Respiratory: Normal air movement Cardiovascular: Regular rate, Normal S1, Normal S2, No murmurs, no chest pain on palpation of the chest. Abdominal: mild tenderness in the LUQ. Normal bowel sounds, Soft, No hepatospenomegaly, No masses Extremities: bilateral pitting edema, more on the left leg. Sandrita's sign positive. Normal pulses, No tenderness/swelling Skin: No breakdown, No significant lesion Neuro: Normal gait, Normal speech, Strength at 5/5 X4 ext, Normal tone, Sensation intact, Cranial nerves 3-12 NL, Reflexes 2+ Psych/Mental Status: Mental status NL, Mood NL laboratory and microbiology Laboratory Tests 09/18/25 05:56 Test 09/18/25 05:56 Range/Units Serum Glucose 85 74-106 mg/dL Problem List/Assessment/Plan Problem List/Assessment/Plan #Possible Acute DVT of the left leg #History of PE - physical exam finding left leg swelling ankle to the knee with 2+ edema - radiology report showed nonocclusive DVT in left lower extremity superficial femoral and popliteal vein - check CD with radiology -Heparin Drip #Chronic SLE - patient not taking prednisone -lupus antibodies #Hypertensive heart disease with possible systolic failure Losartan 50mg po daily #Diabetes mellitus type 2 with hyperglycemia HbA1c pending #Chronic Hyperlipidemia Lipid panel #Chronic Hypothyroidism Levothyroxine #Obesity BMI 37.1 -patient counseled on diet, exercise, lifestyle modifications for >10 minutes Diet Cardiac diet DVT prophylaxis: on heparin drip GI prophylaxis Protonix Code status: full code Disposition: [facility] PCP: Demi Patient's status and plan discussed with the patient >30min. Case discussed with Dr. Fu Plan discussed with: Patient My Orders My Orders Orders - JUAN M KHANNA RESIDENT Procedure Category Date Status Time Lactic Acid W/ Reflex LAB 09/18/25 Transmitted Order 11:30 Sucralfate Susp PHA 09/18/25 Transmitted (Carafate Susp) 22:00 Pantoprazole PHA 09/19/25 Transmitted (Protonix) 10:00 Losartan Tablet PHA 09/19/25 Transmitted (Cozaar Tablet) 10:00 Visit Coding STANDARD RES Billing Provider: RUFINO HARRIS MD Date of Service if different f: Sep 18, 2025 Common Visit Codes: [id number] INP/OBS CARE(HIGH) JUAN M KHANNA RESIDENT Sep 18, 2025 11:40
[2025-09-18 13:00] VITALS: BP 97/63; PULSE 81; RESP 17; TEMP 97.9; O2SAT 98
[2025-09-18] MEDS ORDERED: HEPARIN SODIUM (PORCINE) 5000 UNITS/ML 1ML VIAL IV ONE (15:00)
[2025-09-18 16:15] LABS: Hematocrit 46.1 % (36.0-46.0); Hemoglobin 15.5 g/dL (12.2-16.2); Mean Corpuscular Hemoglobin 30.7 pg (28.0-32.0); Mean Corpuscular Volume 91.5 fL (80.0-100.0); Nucleated Red Blood Cells % 0.1 %
[2025-09-18 16:27] LABS: INR 1.03 (0.9-1.15); Partial Thromboplastin Time 33.6 SEC (24.5-34.5); Prothrombin Time 10.9 sec (9.3-11.8)
[2025-09-18 16:40] VITALS: BP 115/80; PULSE 74; RESP 19; TEMP 96.9; O2SAT 97
--- NOTE | 2025-09-18 17:00 | DVH ---
EXAM: CT CT AB PEL WO CON-NO ORAL OR IV HISTORY: Abdominal pain Comparison Study: CT ABD PELVIS WO CONTRAST on DOS: 10/27/22 Exam Date: 09/18/2025 04:14 PM Radiation Dose Information: CT Dose: CTDI volume is 22.3 mGy. Dose-length product is 1149.8 mGy*cm TECHNIQUE: Multidetector CT of the abdomen and pelvis was performed. Imaging was performed without IV contrast. Axial, coronal and sagittal multiplanar reformats were obtained from the axial data set by the technologist. FINDINGS: Lack of intravenous contrast compromises evaluation of perfusion and for isodense lesions. Lower chest: Clear. Liver: Unremarkable Biliary system: Surgically absent gallbladder Spleen: Unremarkable Pancreas: Unremarkable. Adrenals: Unremarkable. Kidneys and ureters: No hydronephrosis. No renal or ureteral calculi. Bowel: No obstruction. Bladder: Unremarkable Reproductive organs: No abnormal mass. Lymph nodes: Unremarkable. Peritoneum: Unremarkable Vessels: Patency not evaluated on this noncontrast study. Bones and soft tissue: No aggressive osseous lesion IMPRESSION: No acute CT findings in the abdomen and pelvis. Cholecystectomy.
--- NOTE | 2025-09-18 17:42 | CONS ---
Pharmacy Clinical Information: HEPARIN DRIP PER RX PROTOCOL SPOKE TO DAY TIME IVONNE JIMENEZ REGARDING TO NEW HEPARIN DRIP PROTOCOL CURRENT aPTT = 33.6 TODAY 09/18/2025 AT 15:57 PATIENT GOT LOVENOX 90MG SC X1 TODAY 09/18/2025 AT 10:10 INITIAL HEPARIN DRIP RATE = 1600 UNITS/HR SCHEDULED TODAY 09/18/2025 AT 2000 IVONNE JIMENEZ READ BACK INITIAL HEPARIN DRIP RATE 1600 UNITS/HR LATONYA Singer Sep 18, 2025 17:42
[2025-09-18] MEDS: HYDROcodone-ACET 5/325MG TAB PO PRN (19:10)
[2025-09-18 20:00] VITALS: PULSE 78; RESP 18; O2SAT 95
[2025-09-18] MEDS: HEPARIN DRIP/D5W 100UNITS/ML 250 ML IV SCH (20:14)
[2025-09-18 21:00] VITALS: BP 113/76; PULSE 78; RESP 18; TEMP 98.4; O2SAT 95
[2025-09-18] MEDS: SUCRALFATE 1 GM/10 ML ORAL SUSP PO SCH (21:36)
[2025-09-18] MEDS: ATORVASTATIN 20 MG TAB PO SCH (21:36)
[2025-09-19] VITALS (7 sets, daily range): BP systolic 90–129; BP diastolic 52–87; PULSE 68–76; RESP 14–20; TEMP 36.2; O2SAT 96–99
[2025-09-19 02:30] LABS: Hematocrit 44.8 % (36.0-46.0); Hemoglobin 14.8 g/dL (12.2-16.2); Mean Corpuscular Hemoglobin 29.8 pg (28.0-32.0); Mean Corpuscular Volume 90.3 fL (80.0-100.0); Nucleated Red Blood Cells % 0.1 %
[2025-09-19 02:42] LABS: Chloride 104 mmol/L (98-107); Potassium 3.6 mmol/L (3.5-5.1); Sodium 140 mmol/L (136-145)
[2025-09-19 02:43] LABS: Anion Gap 10 (5-15); Calcium 9.3 mg/dL (8.7-10.4); Carbon Dioxide 26 mmol/L (20-31)
[2025-09-19 02:48] LABS: BUN/Creatinine Ratio 6.3 (10.0-20.0); Glucose 101 mg/dL (74-106)
[2025-09-19 02:51] LABS: Blood Urea Nitrogen 5 mg/dL (9-23)
[2025-09-19 02:57] LABS: INR 1.03 (0.9-1.15); Prothrombin Time 10.9 sec (9.3-11.8)
[2025-09-19 03:08] LABS: Triglycerides 92 mg/dL (< 150)
[2025-09-19 03:10] LABS: Cholesterol 197 mg/dL (< 200); HDL Cholesterol 59 mg/dL (40-59)
[2025-09-19 03:42] LABS: Partial Thromboplastin Time 78.8 SEC (24.5-34.5)
[2025-09-19] MEDS: HEPARIN DRIP/D5W 100UNITS/ML 250 ML IV SCH ×2 (04:07→12:48)
[2025-09-19] MEDS: POTASSIUM EFFERVESENT TAB 25 MEQ PO ONE (09:49)
[2025-09-19] MEDS: PANTOPRAZOLE 40 MG/10 ML VIAL INJ IV SCH (09:49)
[2025-09-19] MEDS: LOSARTAN POTASSIUM 50 MG TAB PO SCH (10:00)
[2025-09-19 12:31] LABS: INR 1.03 (0.9-1.15); Prothrombin Time 10.9 sec (9.3-11.8)
[2025-09-19 12:33] LABS: Partial Thromboplastin Time 88.6 SEC (24.5-34.5)
--- NOTE | 2025-09-19 12:46 | CONS ---
Pharmacy Clinical Information: DECREASE HEPARIN RATE TO 1200 UNITS/HR OR 12 ML/HR SINCE APTT = 88.6 @1120 ON 09/19 PER RX PROTOCOL. NEXT APTT CARL 6 HOURS FROM STARTING NEW HEPARIN RATE SERGIO CORONADO AWARE DECREASED RATE FROM 14 ML/HR TO 12 ML/HR AND REPEATED ORDER BACK. ROSARIO VALDEZ PHARMACIST Sep 19, 2025 12:46
[2025-09-19] MEDS ORDERED: APIX5TAB PO ×2 (13:54→13:57)
[2025-09-19] MEDS ORDERED: PANT40T PO (14:11)
[2025-09-19] MEDS ORDERED: SUCR1TAB31 OR (14:11)
--- NOTE | 2025-09-19 17:01 | DVHSR ---
APPROVED REPORT EXAM: Two-dimensional and M-mode echocardiogram with Doppler and color Doppler. Blood Pressure: 105/63 mmHg INDICATION R/O right heart strain RISK FACTORS Height: 61, Weight: 196 DIMENSIONS LVDd 4.7 (3.8-5.7cm) LA (2D) 3.7 (1.9-4.0cm) Aortic Root 3.3 (2.0-3.7cm) LVDs 3.4 (2.5-4.0cm) LA (MM) (1.9-4.0cm) Aortic Cusp Exc 1.8 (1.5-2.0cm) EF (%) 55.0 (55-70%) Rt. Atrium (1.9-4.0cm) Asc. Aorta cm Mitral Valve Mitral Mitral Stenosis E wave 0.83m/s MV Mean GR. mmHg A wave 0.87m/s MV Peak GR. mmHg E/A ratio 1.0 2D MVA cm2 DECEL Time 263ms PRESS 1/2 Time 71ms IVRT ms Dop MVA 3.12cm2 Aortic Valve Aortic Valve Aortic Stenosis V1 1.17m/s AO Mean GR. 4mmHg V2 1.34m/s AO Peak GR. 7mmHg LVOT Diameter 2.0 (1.8-2.4cm) Doppler MARGARETTE 2.74cm2 Pulmonic Valve V2 0.91m/s Tricuspid Valve TR Velocity 2.27m/s RVSP 24mmHg Other Information Quality : Technically Limited Rhythm : Technically limited study due to body habitus and patient sensitive to touch. Conclusion LVEF is normal 50-55%, mild diastolic dysfunction Right ventricle size and function is normal Mild circumferential pericardial effusion
--- NOTE | 2025-09-19 19:18 | DVHDSRES ---
Discharge Summary Date of Admission Resident Creating Document: JUAN M KHANNA RESIDENT Sep 17, 2025 at 22:22 Date of Discharge: Sep 19, 2025 Admitting Diagnosis #Possible Acute DVT of the left leg #History of PE #Chronic SLE #Hypertensive heart disease with possible diastolic disfunction #Diabetes mellitus type 2 with hyperglycemia #Chronic Hyperlipidemia #Chronic Hypothyroidism #Obesity BMI 37.1 Wounds: No wounds on admission. Labs/Diagnostic Data: Laboratory Results Test 09/19/25 11:20 09/19/25 01:40 09/18/25 15:57 09/18/25 11:57 Prothrombin Time 10.9 sec (9.3-11.8) Prothrombin Time INR 1.03 (0.9-1.15) Activated Partial Thromboplast Time 88.6 SEC (24.5-34.5) White Blood Count 4.9 10^3/uL (4.4-10.8) Red Blood Count 4.96 10^6/uL (4.0-5.20) Hemoglobin 14.8 g/dL (12.2-16.2) Hematocrit 44.8 % (36.0-46.0) Mean Corpuscular Volume 90.3 fL (80.0-100.0) Mean Corpuscular Hemoglobin 29.8 pg (28.0-32.0) Mean Corpuscular Hemoglobin Concent 33.0 g/dL (32.0-36.0) Red Cell Distribution Width 12.7 % (11.8-14.3) Platelet Count 291 10^3/uL (140-450) Mean Platelet Volume 8.0 fL (6.9-10.8) Neutrophils (%) (Auto) 28.7 % (37.0-80.0) Lymphocytes (%) (Auto) 51.5 % (10.0-50.0) Monocytes (%) (Auto) 13.5 % (0.0-12.0) Eosinophils (%) (Auto) 4.2 % (0.0-7.0) Basophils (%) (Auto) 2.1 % (0.0-2.0) Neutrophils # (Auto) 1.4 10 ^3/uL (1.6-8.6) Lymphocytes # (Auto) 2.5 10 ^3/uL (0.4-5.4) Monocytes # (Auto) 0.7 10 ^3/uL (0-1.3) Eosinophils # (Auto) 0.2 10 ^3/uL (0-0.8) Basophils # (Auto) 0.1 10 ^3/uL (0-0.2) Nucleated Red Blood Cells 0.1 % Sodium Level 140 mmol/L (136-145) Potassium Level 3.6 mmol/L (3.5-5.1) Chloride Level 104 mmol/L (98-107) Carbon Dioxide Level 26 mmol/L (20-31) Anion Gap 10 (5-15) Blood Urea Nitrogen 5 mg/dL (9-23) Creatinine 0.79 mg/dL (0.550-1.02) Glomerular Filtration Rate Calc 88 mL/min (>90) BUN/Creatinine Ratio 6.3 (10.0-20.0) Serum Glucose 101 mg/dL (74-106) Calcium Level 9.3 mg/dL (8.7-10.4) Triglycerides Level 92 mg/dL (< 150) Cholesterol Level 197 mg/dL (< 200) LDL Cholesterol 132 mg/dL (< 100) HDL Cholesterol 59 mg/dL (40-59) Hemoglobin A1c 5.5 % A1C (<5.7) Lactic Acid Level 0.8 mmol/L (0.4-2.0) Test 09/18/25 05:56 09/17/25 22:00 09/17/25 19:49 09/17/25 19:08 Total Bilirubin 0.9 mg/dL (0.2-1.0) Aspartate Amino Transferase (AST) 28 U/L (13-40) Alanine Aminotransferase (ALT) 26 U/L (7-40) Alkaline Phosphatase 82 U/L (46-116) Total Protein 7.3 g/dL (5.7-8.2) Albumin 3.9 g/dL (3.2-4.8) Urine Color Colorless (Yellow) Urine Clarity Clear (Clear) Urine pH 6.5 (5.0-9.0) Urine Specific [place] 1.002 (1.001-1.035) Urine Protein Negative (Negative) Urine Ketones Negative (Negative) Urine Blood Negative /uL (Negative) Urine Nitrite Negative (Negative) Urine Bilirubin Negative (Negative) Urine Urobilinogen Normal mg/dL (Negative) Urine Leukocyte Esterase Negative /uL (Negative) Urine RBC None seen /hpf (0 - 4) Urine Microscopic WBC 5 /HPF (0-5) Urine Squamous Epithelial Cells Few /hpf (<5) Urine Bacteria Many /hpf (None Seen) Urine Glucose Normal mg/dL (Normal) Urine Opiates Screen Neg (NEGATIVE) Urine Fentanyl Screen Neg (NEGATIVE) Urine Barbiturates Screen Neg (NEGATIVE) Urine Phencyclidine Screen Neg (NEGATIVE) Urine Amphetamines Screen Neg (NEGATIVE) Urine Benzodiazepines Screen Neg (NEGATIVE) Urine Cocaine Screen Neg (NEGATIVE) Urine Cannabinoids Screen Neg (NEGATIVE) POC Glucose 87 mg/dl (70-106) Magnesium Level 2.2 mg/dL (1.6-2.6) Troponin I High Sensitivity < 3 ng/L (</=34) B-Type Natriuretic Peptide 35.09 pg/mL (0-100) Thyroid Stimulating Hormone (TSH) 0.55 uIU/mL (0.55-4.78) Other Laboratory Tests 09/19/25 01:40 Brief Hx & Hospital Course: Jocelynn Schmidt is a 55-year-old female, with past medical history of lupus, DVT, PE, hyperlipidemia, hypertension, type 2 diabetes mellitus and hypothyroidis. The patient came to [facility] ED with chief complaints of left leg pain and swelling since 3 months she describes the pain as 10/10 in intensity, nonradiating, constant, and swelling worsens with exertion. Patient had a ultrasound done at [facility] advanced imaging which showed extensive DVT in the left leg , and was recommended to go to ED. patient denies any injury, trauma, shortness of breath, dizziness, nausea, vomiting, chest pain, palpitations, fever, chills, abdominal pain. 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 Patient states at 1st she was taking 5 mg in morning and 5 mg at night of Eliquis but then last year she had bleeding in her gums and decrease the dose of 5 mg to 2.5 mg at night. Previous hospitalization: patient was hospitalized with previous DVT,PE PMHx:lupus, DVT, PE, hyperlipidemia, hypertension, type 2 diabetes mellitus, hypothyroidism PSHx: cholecystectomy , , right dislocated knee Family history: reviewed, noncontributory Social history: denies smoking, 2 drinks on the weekends, denies drug use, lives with a roommate Home medication: denies prednisone use, Eliquis 5 mg in the morning and 2.5 mg at night. Amlodipine, levothyroxine, quetiapine Allergic history: penicillin PCP: Dr. Rodriguez [facility] course: During her admission in [facility] the patient was evaluated as follow: On 09/18/25, the patient seen and examined at bedside. Patient still complains of leg swelling which increases with ambulation and 9/10. Also, the patient was complaining of LUQ abdominal pain, a CT abdomen was ordered that reported no acute abdominal findings. Lactic acid was ordered, level is wnl: 0.8. Due to DVT the patient was started on heparin drip. On 09/19/25, the patient the patient seen and examined at bedside, the patient reports improvement on left leg pain and swelling. The heparin drip was stopped and eliquis was resumend. Due to clinical improvement the patient will be discharge today. The patient will follow up with d/c clinic, PCP and hematology in 1 week. ROS: Constitutional: No: Fever, Chills, Sweats, Weakness, Malaise, Other Eyes: No: Pain, Vision change, Conjunctivae inflammation, Eyelid inflammation, Other, Redness ENT: No: Ear pain, Ear discharge, Nose pain, Nose discharge, Nose congestion, Mouth pain, Mouth swelling, Throat pain, Throat swelling, Other Respiratory: No: Cough, Dry, Shortness of breath, SOB with excertion, Wheezing, Hemoptysis, Pleuritic Pain, Sputum, Wheezing, Other Cardiovascular: No: Chest Pain, Palpitations, Orthopnea, Paroxysmal Noc. Dyspnea, Edema, Lt Headedness, Other Gastrointestinal: Nausea; No: Vomiting, Abdominal Pain, Diarrhea, Constipation, Melena, Hematochezia, Other Genitourinary: No Dysuria, No Frequency, No Incontinence, No Hematuria, No Retention, No Other Musculoskeletal: leg pain, foot pain; No: other, neck pain, shoulder pain, arm pain, back pain, hand pain Skin: No: Rash, Lesions, Jaundice, Bruising, Other Neurological: No: Weakness, Numbness, Incoordination, Change in speech, Confusion, Seizures, Other Physical exam: General Appearance: Alert, Oriented X3, Cooperative, No acute distress HEENT: Atraumatic, PERRLA, EOMI, Mucous membr. moist/pink Respiratory: Normal air movement Cardiovascular: Regular rate, Normal S1, Normal S2, No murmurs, no chest pain on palpation of the chest. Abdominal: mild tenderness in the LUQ. Normal bowel sounds, Soft, No hepatospenomegaly, No masses Extremities: bilateral pitting edema, more on the left leg. Sandrita's sign positive. Normal pulses, No tenderness/swelling Skin: No breakdown, No significant lesion Neuro: Normal gait, Normal speech, Strength at 5/5 X4 ext, Normal tone, Sensation intact, Cranial nerves 3-12 NL, Reflexes 2+ Psych/Mental Status: Mental status NL, Mood NL Operations or Procedures PROCEDURE(s): CXR1 - CHEST XRAY 1 VIEW REASON: chest pain ORDER NUMBER(s): [id number], ACCESSION NUMBER(s): [id number] CHEST RADIOGRAPH INDICATION: chest pain TECHNIQUE: Single frontal view of the chest was obtained COMPARISON: XY CHEST PORTABLE on DOS: 01/27/23, CHEST PORTABLE on DOS: 01/14/22, CXRP on DOS: 01/14/22 FINDINGS: Lines and Tubes: None Lungs: Clear Pleura: No effusion. No pneumothorax. Cardiomediastinal contours: Unremarkable Bones: Unremarkable IMPRESSION: 1. No acute disease. EDURE(s): BLDVT - BiLat Lower DVT REASON: dvt ORDER NUMBER(s): [id number], ACCESSION NUMBER(s): [id number] Bilateral lower extremity venous duplex CLINICAL HISTORY: dvt COMPARISON: US BILAT LOWER DVT on DOS: 01/27/23 TECHNIQUE: Duplex Doppler evaluation of the deep venous systems of both lower extremities from the common femoral veins to the popliteal veins including color Doppler and spectral/pulsed waveform analysis was performed. FINDINGS: RIGHT SIDE: The common femoral vein demonstrates appropriate compressibility and waveform variability. There is compressibility/patency of the great saphenous vein at the proximal thigh. The femoral vein demonstrates appropriate compressibility and waveform variability. The deep femoral vein demonstrates appropriate compressibility and waveform variability. The popliteal vein demonstrates appropriate compressibility and waveform variability. There is normal compressibility at the tibioperoneal trunk. LEFT SIDE: The common femoral vein demonstrates appropriate compressibility and waveform variability. There is compressibility/patency of the great saphenous vein at the proximal thigh. The femoral vein demonstrates appropriate compressibility and waveform variability. The deep femoral vein demonstrates appropriate compressibility and waveform variability. The popliteal vein demonstrates appropriate compressibility and waveform variability. There is normal compressibility at the tibioperoneal trunk. IMPRESSION: 1. No right or left femoropopliteal venous thrombosis. EDURE(s): ABPL - CT AB PEL WO CON-NO ORAL OR IV REASON: Abdominal pain ORDER NUMBER(s): [id number], ACCESSION NUMBER(s): [id number] EXAM: CT CT AB PEL WO CON-NO ORAL OR IV HISTORY: Abdominal pain Comparison Study: CT ABD PELVIS WO CONTRAST on DOS: 10/27/22 Exam Date: 09/18/2025 04:14 PM Radiation Dose Information: CT Dose: CTDI volume is 22.3 mGy. Dose-length product is 1149.8 mGy*cm TECHNIQUE: Multidetector CT of the abdomen and pelvis was performed. Imaging was performed without IV contrast. Axial, coronal and sagittal multiplanar reformats were obtained from the axial data set by the technologist. FINDINGS: Lack of intravenous contrast compromises evaluation of perfusion and for isodense lesions. Lower chest: Clear. Liver: Unremarkable Biliary system: Surgically absent gallbladder Spleen: Unremarkable Pancreas: Unremarkable. Adrenals: Unremarkable. Kidneys and ureters: No hydronephrosis. No renal or ureteral calculi. Bowel: No obstruction. Bladder: Unremarkable Reproductive organs: No abnormal mass. Lymph nodes: Unremarkable. Peritoneum: Unremarkable Vessels: Patency not evaluated on this noncontrast study. Bones and soft tissue: No aggressive osseous lesion IMPRESSION: No acute CT findings in the abdomen and pelvis. Cholecystectomy. Condition at Discharge: Stable Final Diagnosis/Problems List #Possible Acute DVT of the left leg #History of PE #Chronic SLE #Hypertensive heart disease with possible diastolic failure #Diabetes mellitus type 2 with hyperglycemia #Chronic Hyperlipidemia #Chronic Hypothyroidism #Obesity BMI 37.1 Discharge Disposition: Home SNF Discharge Will this Physician continue t: No Discharge Instruct/Medications Diet: Consistent carbohydrate, Cardiac 2g Na,low cholest Activity: No Restrictions, As Tolerated Follow Up/Referral: F/U with PCP in 1 week F/U with D/C clinic within 1 week F/U with social economist in 1 week. Medications: Eliquis 5mg po bid Carafate 1gr po q6h Pantoprazole 40mg po daily Scheduled Amlodipine Besylate (Amlodipine Besylate), 10 MG PO DAILY, (Reported) Amoxicillin & Pot Clavulanate (Amoxicillin/Potassium Cla), 875 MG PO BID Apixaban Base (Eliquis), 5 MG OR BID Apixaban Base (Eliquis), 5 MG PO BID Apixaban Base (Eliquis), 10 MG PO BID Atorvastatin Calcium (Lipitor), 1 TAB PO DAILY, (Reported) Cholecalciferol (Vitamin D3), 0.5 TAB PO DAILY, (Reported) Ciprofloxacin Hcl (Ophth) (Cipro Opthalmic Soln), 2 DROP RIGHTEYE QID Cyclobenzaprine Hcl (Cyclobenzaprine Hcl), 10 MG PO Q8HP, (Reported) Cyclosporine (Ophth) (Restasis), 1 DROP EACHEYE BID, (Reported) Escitalopram Oxalate (Lexapro), 1 TAB PO DAILY, (Reported) Fexofenadine Hcl (Fexofenadine Hcl), 180 MG PO DAILY, (Reported) Levothyroxine Sodium (Levothyroxine Sodium), 112 MCG PO QAM, (Reported) Pantoprazole Sodium Sesquihydr (Pantoprazole Sodium), 40 MG PO DAILY Prednisone (Prednisone), 60 MG PO DAILY Pregabalin (Lyrica), 1 CAP PO BID, (Reported) Propranolol Hcl (Inderal La), 1 CAP PO DAILY, (Reported) Sucralfate (Carafate), 1 GM OR 6XD Scheduled PRN Acetaminophen (Acetaminophen), 500 MG PO Q6HPRN PRN for MILD PAIN, (Reported) Miscellaneous Medications Acetaminophen W/ Codeine (Codeine/Acetaminophen), 1 TAB PO, (Reported) Diclofenac Sodium (Topical) (Voltaren), 1 % TD, (Reported) Hydrocodone-Acetaminophen (Hydrocodone/Acetaminophen 5-325 mg), 1 TAB PO, (Reported) Ibuprofen (Ibuprofen), 800 MG PO, (Reported) Pantoprazole Sodium Sesquihydr (Pantoprazole Sodium), 20 MG PO, (Reported) Triamcinolone Acetonide (Triamcinolone Acetonide), 0.025 APPLIC TOP, (Reported) Discharge Statement: "Patient was advised to return to the ER or call 911 if any headaches, dizziness, shortness of breath, chest pain, abdominal pain, bleeding, fevers, or worsening of medical condition. Patient was counseled about treatment plan, medications, possible side effects, patientverbalized understanding. All questions were answered to the best of my ability. This discharge took greater then 30 minutes in planning, reviewing documentation, counseling the patient, and discussing with other team members." ASSESSMENT ASSESSMENT Assessment #Possible Acute DVT of the left leg #History of PE #Chronic SLE #Hypertensive heart disease with possible diastolic failure #Diabetes mellitus type 2 with hyperglycemia #Chronic Hyperlipidemia #Chronic Hypothyroidism #Obesity BMI 37.1 Code status: full code PCP: Dr. Simms Patient's status and discharge plan discussed with the patient >30min. Case discussed with Dr. Fu Visit Coding STANDARD RES Billing Provider: RUFINO HARRIS MD Date of Service if different f: Sep 19, 2025 Common Visit Codes: 43535-TLI/OBS DISCH DAY >30min JUAN M KHANNA RESIDENT Sep 19, 2025 19:18
== END 2025-09-19 16:20 | disposition home or self-care (01) | DRG 301 ==
LOC: ER 17:19 → OVERFLOW 22:22 → WEST WING 22:33
PROVIDERS: ADMIT Student in an Organized Health Care Education/Training Program; ATTEND Student in an Organized Health Care Education/Training Program
DX: I82.4Z2 Acute embolism and thrombosis of unspecified deep veins of left distal lower extremity (principal); I11.0 Hypertensive heart disease with heart failure; I50.9 Heart failure, unspecified; E03.9 Hypothyroidism, unspecified; M32.9 Systemic lupus erythematosus, unspecified; E11.65 Type 2 diabetes mellitus with hyperglycemia; E66.9 Obesity, unspecified; Z79.01 Long term (current) use of anticoagulants; F32.A Depression, unspecified; E78.5 Hyperlipidemia, unspecified; F17.210 Nicotine dependence, cigarettes, uncomplicated; Z68.37 Body mass index [BMI] 37.0-37.9, adult; F41.9 Anxiety disorder, unspecified; Z98.891 History of uterine scar from previous surgery; Z90.49 Acquired absence of other specified parts of digestive tract; Z88.0 Allergy status to penicillin; Z79.899 Other long term (current) drug therapy; Z82.49 Family history of ischemic heart disease and other diseases of the circulatory system
CPT/HCPCS: 36415; 71045; 74176; 80048; 80053; 80061; 80307; 81001; 82962; 83036; 83605; 83735; 83880; 84443; 84484; 85025; 85610; 85730; 86038; 93306; 93970; 96372; G0378; J2470